=== PATIENT | female | born 1960 | race Caucasian/White ===

== ENCOUNTER 2018-02-03 23:46 | Inpatient (IN) | payer MEDICARE, OTHER ==
[2018-02-03] MEDS: FUROSEMIDE 100 MG INJ IV (23:48)
[2018-02-04 00:05] LABS: WHITE BLOOD COUNT 13.1 10^3/ul (4.8-10.8)
[2018-02-04 00:05] LABS: ADD MAN DIFF? NO; BASOPHILS % 0.3 % (0.0-2.0); EOSINOPHILS # 0.2 10^3/ul (0.0-0.5); EOSINOPHILS % 1.2 % (0.0-7.0); HEMATOCRIT 45.9 % (37.0-47.0); HEMOGLOBIN 14.4 g/dl (12.0-16.0); LYMPHOCYTES # 1.6 10^3/ul (0.8-2.9); LYMPHOCYTES % 11.8 % (15.0-51.0); MEAN CORPUSCULAR HEMOGLOBIN 27.5 pg (29.0-33.0); MEAN CORPUSCULAR HGB CONC 31.4 g/dl (32.0-37.0); MEAN CORPUSCULAR VOLUME 87.8 fl (82.0-101.0); MEAN PLATELET VOLUME 9.8 fl (7.4-10.4); MONOCYTE # 0.7 10^3/ul (0.3-0.9); MONOCYTES % 5.3 % (0.0-11.0); NEUTROPHIL # 10.6 10^3/ul (1.6-7.5); NEUTROPHILS % 80.8 % (39.0-77.0); PLATELET COUNT 260 10^3/UL (140-415); RED BLOOD COUNT 5.23 10^6/ul (4.20-5.40); RED CELL DISTRIBUTION WIDTH 14.9 % (11.5-14.5)
[2018-02-04] MEDS: NITROGLYCERIN 2% 1 GM OINT PKT TD ×3 (00:14→21:05)
[2018-02-04] MEDS: NITROGLYCERIN 50 MG/D5W (PMX) 250 ML IV (00:15)
[2018-02-04 00:22] LABS: ALBUMIN/GLOBULIN RATIO 1.65; ANION GAP 14 (5-13); BILIRUBIN,TOTAL 0.8 mg/dl (0.2-1.3); Estimated GFR > 60 mL/min (>60)
[2018-02-04 00:28] LABS: ALANINE AMINOTRANSFERASE 23 IU/L (13-69); ALBUMIN 4.8 g/dl (3.3-4.9); ALKALINE PHOSPHATASE 82 IU/L (42-121); ASPARTATE AMINO TRANSFERASE 21 IU/L (15-46); BILIRUBIN,INDIRECT 0.8 mg/dl (0-1.1); BLOOD UREA NITROGEN 8 mg/dl (7-20); CALCIUM 10.3 mg/dl (8.4-10.2); CARBON DIOXIDE 30 mmol/L (21-31); CHLORIDE 92 mmol/L (97-110); CREATININE 0.17 mg/dl (0.44-1.00); GLUCOSE 367 mg/dl (70-220); POTASSIUM 4.4 mmol/L (3.5-5.1); SODIUM 136 mmol/L (135-144); TOTAL PROTEIN 7.7 g/dl (6.1-8.1)
[2018-02-04 00:29] LABS: INR 0.92; PROTIME 12.4 Sec (11.9-14.9)
[2018-02-04 00:30] LABS: PARTIAL THROMBOPLASTIN TIME 26.7 Sec (23.0-35.0)
[2018-02-04 00:42] LABS: B-TYPE NATRIURETIC PEPTIDE 94 PG/ML (0-125); TROPONIN-I < 0.012 ng/ml (0.000-0.120)
[2018-02-04 00:44] LABS: Allen Test ACCEPTAB; Arterial Base Excess 0 mmol/L (-3.0-3); Arterial Blood Gas Oxygen Sat 99.4 mmHG (95.0-98.0); Arterial COHb 1.4 % (0.0-3.0); Arterial Fraction of Oxyhgb 97.8 % (93.0-99.0); Arterial HCO3 27.6 mmol/L (22.0-26.0); Arterial MetHb 0.2 % (0.0-1.5); Arterial pCO2 57.3 mmhg (35-45); Blood Gas IEPAP 15/5; MODE MASK - BIPAP; Site Right Radial
[2018-02-04] MEDS ORDERED: NACL 0.9% 3 ML SYG IV (01:00)
[2018-02-04] MEDS ORDERED: DOCUSATE SODIUM 100 MG CAP PO (01:00)
[2018-02-04] MEDS ORDERED: ONDANSETRON 4 MG INJ IV (01:00)
[2018-02-04] MEDS ORDERED: BISACODYL (EC) 5 MG TAB PO (01:00)
[2018-02-04] MEDS ORDERED: FUROSEMIDE 40 MG INJ (01:40)
[2018-02-04] MEDS ORDERED: LABETALOL HCL 20MG INJ IV (02:00)
[2018-02-04] MEDS: ACCU-CHEK XX (02:00)
[2018-02-04] MEDS ORDERED: ACETYLCYSTEINE 20% 4 ML VIAL (05:19)
[2018-02-04] MEDS: ACETYLCYSTEINE 20% 4 ML VIAL NEB ×3 (05:27→19:30)
[2018-02-04] MEDS: LEVALBUTEROL (NEB) 1.25 MG/0.5 ML AMP HHN ×2 (05:29→19:30)
[2018-02-04] MEDS ORDERED: NITROGLYCERIN 0.3 MG/HR PATCH TRANSDERM (05:30)
[2018-02-04 05:37] LABS: ADD MAN DIFF? NO
[2018-02-04] MEDS: FUROSEMIDE 40 MG INJ IV ×3 (05:39→21:03)
[2018-02-04] MEDS: LISINOPRIL 20 MG TAB PO (05:40)
[2018-02-04 05:43] LABS: WHITE BLOOD COUNT 10.7 10^3/ul (4.8-10.8)
[2018-02-04 05:43] LABS: ABNORMAL IP MESSAGE 1; BASOPHILS % 0.4 % (0.0-2.0); EOSINOPHILS % 0.4 % (0.0-7.0); HEMATOCRIT 42.2 % (37.0-47.0); HEMOGLOBIN 13.2 g/dl (12.0-16.0); LYMPHOCYTES # 0.5 10^3/ul (0.8-2.9); LYMPHOCYTES % 4.7 % (15.0-51.0); MEAN CORPUSCULAR HEMOGLOBIN 27.7 pg (29.0-33.0); MEAN CORPUSCULAR HGB CONC 31.3 g/dl (32.0-37.0); MEAN CORPUSCULAR VOLUME 88.5 fl (82.0-101.0); MEAN PLATELET VOLUME 10.4 fl (7.4-10.4); MONOCYTE # 0.5 10^3/ul (0.3-0.9); MONOCYTES % 4.5 % (0.0-11.0); NEUTROPHIL # 9.6 10^3/ul (1.6-7.5); NEUTROPHILS % 89.4 % (39.0-77.0); PLATELET COUNT 241 10^3/UL (140-415); RED BLOOD COUNT 4.77 10^6/ul (4.20-5.40); RED CELL DISTRIBUTION WIDTH 14.9 % (11.5-14.5)
[2018-02-04 05:44] LABS: LACTIC ACID 1.2 mmol/L (0.5-2.0)
[2018-02-04 05:54] LABS: D-DIMER 584.54 ng/ml (<460)
[2018-02-04 05:54] LABS: ALANINE AMINOTRANSFERASE 19 IU/L (13-69); ALBUMIN 4.2 g/dl (3.3-4.9); ALBUMIN/GLOBULIN RATIO 1.55; ALKALINE PHOSPHATASE 76 IU/L (42-121); ANION GAP 12 (5-13); ASPARTATE AMINO TRANSFERASE 15 IU/L (15-46); BILIRUBIN,INDIRECT 0.7 mg/dl (0-1.1); BILIRUBIN,TOTAL 0.7 mg/dl (0.2-1.3); BLOOD UREA NITROGEN 12 mg/dl (7-20); CALCIUM 9.7 mg/dl (8.4-10.2); CARBON DIOXIDE 32 mmol/L (21-31); CHLORIDE 93 mmol/L (97-110); CHOL/HDL RATIO 3.3 RATIO; CHOLESTEROL 147 mg/dl (100-200); CREATININE 0.26 mg/dl (0.44-1.00); Estimated GFR > 60 mL/min (>60); GLUCOSE 388 mg/dl (70-220); HDL CHOLESTEROL 44 mg/dl (37-92); LDL CHOLESTEROL,CALCULATED 79 mg/dl; MAGNESIUM 1.6 mg/dl (1.7-2.5); POTASSIUM 4.3 mmol/L (3.5-5.1); SODIUM 137 mmol/L (135-144); TOTAL PROTEIN 6.9 g/dl (6.1-8.1); TRIGLYCERIDES 122 mg/dl (0-149)
[2018-02-04 06:01] LABS: HEMOGLOBIN A1C 10.7 % (0-5.9)
[2018-02-04 06:11] LABS: POSITIVE DIFF @See below
[2018-02-04 06:24] LABS: THYROID STIMULATING HORMONE 0.666 MIU/L (0.465-4.680)
[2018-02-04 06:49] LABS: TROPONIN-I < 0.012 ng/ml (0.000-0.120)
[2018-02-04 07:01] LABS: CREATINE KINASE 70 IU/L (23-200)
[2018-02-04 07:13] LABS: ADD UMIC YES; UR ASCORBIC ACID 20 mg/dL (NEGATIVE); UR BILIRUBIN (Dip) NEGATIVE (NEGATIVE); UR BLOOD (Dip) 2+ mg/dL (NEGATIVE); UR CLARITY CLEAR (CLEAR); UR COLOR STRAW (YELLOW); UR GLUCOSE (Dip) 3+ mg/dL (NEGATIVE); UR KETONES (Dip) 1+ mg/dL (NEGATIVE); UR LEUKOCYTE ESTERASE (Dip) NEGATIVE Leu/ul (NEGATIVE); UR NITRITE (Dip) NEGATIVE (NEGATIVE); UR RBC 51 /HPF (0-5); UR SPECIFIC GRAVITY (Dip) 1.012 (1.003-1.030); UR TOTAL PROTEIN (Dip) NEGATIVE (NEGATIVE); UR UROBILINOGEN (Dip) NEGATIVE (NEGATIVE); UR WBC 4 /HPF (0-5)
[2018-02-04] MEDS: ENOXAPARIN 40 MG/0.4 ML SYG SC (07:18)
[2018-02-04] MEDS: INSULIN ASPART [NOVOLOG] 3 ML PEN SC ×6 (08:06→21:44)
[2018-02-04] MEDS: MAGNESIUM SULFATE 2 GM/50 ML 50 ML IVPB (12:12)
[2018-02-04 12:49] LABS: CREATINE KINASE 64 IU/L (23-200)
[2018-02-04 12:57] LABS: CK INDEX 0.7; CK-MB 0.42 ng/ml (0.0-2.4); TROPONIN-I < 0.012 ng/ml (0.000-0.120)
[2018-02-04] MEDS: IOHEXOL 100 ML (14:32)
[2018-02-04] MEDS: SOD CHLORIDE 0.9% 100 ML (14:32)
[2018-02-04] MEDS: ACETAMINOPHEN 325 MG TAB PO (17:44)
[2018-02-04] MEDS: INFLUENZA VIRUS VACCINE 0.5 ML (DISPENSING) IM* (17:55)
[2018-02-04] MEDS: ATORVASTATIN 20 MG TAB PO (21:04)
[2018-02-04] MEDS: INSULIN DETEMIR [LEVEMIR] (100 UNITS/ML) SYG SC (21:11)
[2018-02-05] MEDS: LEVALBUTEROL (NEB) 1.25 MG/0.5 ML AMP HHN ×2 (01:11→07:21)
[2018-02-05] MEDS: ACETYLCYSTEINE 20% 4 ML VIAL NEB ×3 (01:12→13:50)
[2018-02-05] MEDS: ACCU-CHEK XX (02:00)
[2018-02-05] MEDS: ACETAMINOPHEN 325 MG TAB PO (07:18)
[2018-02-05] MEDS: ENOXAPARIN 40 MG/0.4 ML SYG SC (07:27)
[2018-02-05] MEDS: HYDROCHLOROTHIAZIDE 12.5 MG CAP PO (08:36)
[2018-02-05] MEDS: LISINOPRIL 20 MG TAB PO (08:37)
[2018-02-05] MEDS: NITROGLYCERIN 2% 1 GM OINT PKT TD ×2 (08:38→20:55)
[2018-02-05] MEDS: FUROSEMIDE 40 MG INJ IV ×2 (08:38→20:58)
[2018-02-05] MEDS: INSULIN ASPART [NOVOLOG] 3 ML PEN SC ×6 (08:48→20:13)
[2018-02-05] MEDS ORDERED: GLUCAGON 1 MG INJ IM (09:00)
[2018-02-05] MEDS ORDERED: DEXTROSE 50% 50 ML SYRINGE IV ×2 (09:00)
[2018-02-05] MEDS ORDERED: GLUCOSE GEL 15 GRAM TUBE BUCCAL (09:00)
[2018-02-05] MEDS ORDERED: GLUCOSE GEL 15 GRAM TUBE PO ×2 (09:00)
[2018-02-05] MEDS: AZITHROMYCIN 250 MG TAB PO (12:31)
[2018-02-05] MEDS: AMOXICILLIN 500 MG CAP PO ×2 (14:40→23:02)
[2018-02-05] MEDS: METHYLPREDNISOLONE 40 MG INJ IV ×2 (15:30→20:58)
[2018-02-05] MEDS: ATORVASTATIN 20 MG TAB PO (20:58)
[2018-02-05] MEDS: INSULIN DETEMIR [LEVEMIR] (100 UNITS/ML) SYG SC (20:59)
[2018-02-06] MEDS: ACCU-CHEK XX (02:02)
[2018-02-06] MEDS: INSULIN ASPART [NOVOLOG] 3 ML PEN SC ×9 (02:18→21:45)
[2018-02-06] MEDS: AMOXICILLIN 500 MG CAP PO ×3 (05:25→20:38)
[2018-02-06] MEDS: ENOXAPARIN 40 MG/0.4 ML SYG SC (06:05)
[2018-02-06] MEDS: NITROGLYCERIN 2% 1 GM OINT PKT TD ×2 (09:00→20:27)
[2018-02-06] MEDS: FUROSEMIDE 40 MG INJ IV ×2 (09:00→20:27)
[2018-02-06] MEDS: AZITHROMYCIN 250 MG TAB PO (09:00)
[2018-02-06] MEDS: METHYLPREDNISOLONE 40 MG INJ IV ×2 (09:01→20:26)
[2018-02-06] MEDS: LISINOPRIL 20 MG TAB PO (09:01)
[2018-02-06] MEDS: HYDROCHLOROTHIAZIDE 12.5 MG CAP PO (09:01)
[2018-02-06] MEDS: INSULIN DETEMIR [LEVEMIR] (100 UNITS/ML) SYG SC ×2 (11:14→20:30)
[2018-02-06 11:56] LABS: BLOOD UREA NITROGEN 20 mg/dl (7-20); CALCIUM 10.2 mg/dl (8.4-10.2); CHLORIDE 93 mmol/L (97-110); CREATININE 0.26 mg/dl (0.44-1.00); Estimated GFR > 60 mL/min (>60); GLUCOSE 293 mg/dl (70-220); POTASSIUM 4.3 mmol/L (3.5-5.1); SODIUM 142 mmol/L (135-144)
[2018-02-06 12:03] LABS: ANION GAP 10 (5-13)
[2018-02-06 12:06] LABS: CARBON DIOXIDE 39 mmol/L (21-31)
[2018-02-06] MEDS: ATORVASTATIN 20 MG TAB PO (20:27)
[2018-02-07] MEDS: INSULIN ASPART [NOVOLOG] 3 ML PEN SC ×8 (02:55→20:20)
[2018-02-07] MEDS: ACCU-CHEK XX (02:56)
[2018-02-07] MEDS: AMOXICILLIN 500 MG CAP PO ×3 (05:59→22:14)
[2018-02-07] MEDS: ENOXAPARIN 40 MG/0.4 ML SYG SC (05:59)
[2018-02-07 07:29] LABS: ADD MAN DIFF? NO
[2018-02-07 07:38] LABS: BASOPHILS % 0.2 % (0.0-2.0); HEMATOCRIT 41.8 % (37.0-47.0); LYMPHOCYTES # 0.8 10^3/ul (0.8-2.9); LYMPHOCYTES % 12.7 % (15.0-51.0); MEAN CORPUSCULAR HEMOGLOBIN 27.5 pg (29.0-33.0); MEAN CORPUSCULAR HGB CONC 31.1 g/dl (32.0-37.0); MEAN CORPUSCULAR VOLUME 88.6 fl (82.0-101.0); MEAN PLATELET VOLUME 9.9 fl (7.4-10.4); MONOCYTE # 0.3 10^3/ul (0.3-0.9); MONOCYTES % 5.4 % (0.0-11.0); NEUTROPHIL # 5.1 10^3/ul (1.6-7.5); NEUTROPHILS % 81.2 % (39.0-77.0); PLATELET COUNT 268 10^3/UL (140-415); RED BLOOD COUNT 4.72 10^6/ul (4.20-5.40); RED CELL DISTRIBUTION WIDTH 14.8 % (11.5-14.5)
[2018-02-07 07:38] LABS: WHITE BLOOD COUNT 6.3 10^3/ul (4.8-10.8)
[2018-02-07 08:14] LABS: BLOOD UREA NITROGEN 25 mg/dl (7-20); CALCIUM 9.9 mg/dl (8.4-10.2); CHLORIDE 91 mmol/L (97-110); CREATININE 0.26 mg/dl (0.44-1.00); Estimated GFR > 60 mL/min (>60); GLUCOSE 369 mg/dl (70-220); MAGNESIUM 1.9 mg/dl (1.7-2.5); PHOSPHORUS 4.6 mg/dl (2.5-4.9); POTASSIUM 4.3 mmol/L (3.5-5.1); SODIUM 139 mmol/L (135-144)
[2018-02-07] MEDS: NITROGLYCERIN 2% 1 GM OINT PKT TD ×2 (08:40→20:21)
[2018-02-07] MEDS: LISINOPRIL 20 MG TAB PO (08:40)
[2018-02-07] MEDS: FUROSEMIDE 40 MG INJ IV ×2 (08:40→20:19)
[2018-02-07] MEDS: METHYLPREDNISOLONE 40 MG INJ IV ×2 (08:40→20:19)
[2018-02-07] MEDS: AZITHROMYCIN 250 MG TAB PO (08:40)
[2018-02-07] MEDS: HYDROCHLOROTHIAZIDE 12.5 MG CAP PO (08:41)
[2018-02-07 08:45] LABS: ANION GAP 11 (5-13)
[2018-02-07 08:46] LABS: CARBON DIOXIDE 37 mmol/L (21-31)
[2018-02-07] MEDS: INSULIN DETEMIR [LEVEMIR] (100 UNITS/ML) SYG SC ×2 (11:22→20:52)
[2018-02-07] MEDS: ATORVASTATIN 20 MG TAB PO (20:19)
[2018-02-08] MEDS: ACCU-CHEK XX (02:00)
[2018-02-08] MEDS: AMOXICILLIN 500 MG CAP PO ×3 (06:17→21:09)
[2018-02-08] MEDS: ENOXAPARIN 40 MG/0.4 ML SYG SC (06:21)
[2018-02-08] MEDS: INSULIN ASPART [NOVOLOG] 3 ML PEN SC ×7 (07:47→21:00)
[2018-02-08] MEDS: METHYLPREDNISOLONE 40 MG INJ IV ×2 (08:35→21:09)
[2018-02-08] MEDS: NITROGLYCERIN 2% 1 GM OINT PKT TD ×2 (08:35→21:11)
[2018-02-08] MEDS: LISINOPRIL 20 MG TAB PO (08:35)
[2018-02-08] MEDS: HYDROCHLOROTHIAZIDE 12.5 MG CAP PO (08:35)
[2018-02-08] MEDS: AZITHROMYCIN 250 MG TAB PO (08:36)
[2018-02-08] MEDS: FUROSEMIDE 40 MG INJ IV ×2 (08:36→21:11)
[2018-02-08] MEDS: INSULIN DETEMIR [LEVEMIR] (100 UNITS/ML) SYG SC ×2 (08:39→21:56)
[2018-02-08 08:45] LABS: BLOOD UREA NITROGEN 30 mg/dl (7-20); CALCIUM 9.8 mg/dl (8.4-10.2); CHLORIDE 91 mmol/L (97-110); CREATININE 0.34 mg/dl (0.44-1.00); Estimated GFR > 60 mL/min (>60); GLUCOSE 281 mg/dl (70-220); POTASSIUM 4.7 mmol/L (3.5-5.1); SODIUM 140 mmol/L (135-144)
[2018-02-08 08:57] LABS: ANION GAP 6 (5-13); CARBON DIOXIDE 43 mmol/L (21-31)
[2018-02-08] MEDS: ATORVASTATIN 20 MG TAB PO (21:09)
[2018-02-09] MEDS: ACCU-CHEK XX (02:00)
[2018-02-09] MEDS: AMOXICILLIN 500 MG CAP PO ×3 (06:01→21:24)
[2018-02-09] MEDS: ENOXAPARIN 40 MG/0.4 ML SYG SC (06:35)
[2018-02-09 07:02] LABS: BLOOD UREA NITROGEN 26 mg/dl (7-20); CALCIUM 9.3 mg/dl (8.4-10.2); CHLORIDE 89 mmol/L (97-110); CREATININE 0.28 mg/dl (0.44-1.00); Estimated GFR > 60 mL/min (>60); GLUCOSE 307 mg/dl (70-220); POTASSIUM 4.2 mmol/L (3.5-5.1); SODIUM 139 mmol/L (135-144)
[2018-02-09 07:29] LABS: ANION GAP 8 (5-13); CARBON DIOXIDE 42 mmol/L (21-31)
[2018-02-09] MEDS: INSULIN ASPART [NOVOLOG] 3 ML PEN SC ×7 (08:16→20:18)
[2018-02-09] MEDS: LISINOPRIL 20 MG TAB PO (08:37)
[2018-02-09] MEDS: HYDROCHLOROTHIAZIDE 12.5 MG CAP PO (08:37)
[2018-02-09] MEDS: NITROGLYCERIN 2% 1 GM OINT PKT TD ×2 (08:38→20:07)
[2018-02-09] MEDS: AZITHROMYCIN 250 MG TAB PO (08:38)
[2018-02-09] MEDS: METHYLPREDNISOLONE 40 MG INJ IV (08:38)
[2018-02-09] MEDS: FUROSEMIDE 40 MG INJ IV ×3 (08:38→17:53)
[2018-02-09] MEDS: INSULIN DETEMIR [LEVEMIR] (100 UNITS/ML) SYG SC ×2 (08:50→20:18)
[2018-02-09] MEDS ORDERED: FUROSEMIDE 40 MG INJ IV (09:00)
[2018-02-09 12:53] LABS: AADO2 Arterial 34.6 mmHg (7.0-24.0); Allen Test ACCEPTAB; Arterial Base Excess 11.4 mmol/L (-3.0-3); Arterial Blood Gas Oxygen Sat 84.6 mmHG (95.0-98.0); Arterial Fraction of Oxyhgb 83.8 % (93.0-99.0); Arterial MetHb 0 % (0.0-1.5); Arterial pCO2 56.6 mmhg (35-45); MODE ROOM AIR; Site Right Radial
[2018-02-09] MEDS: ATORVASTATIN 20 MG TAB PO (20:06)
[2018-02-10] MEDS: ACCU-CHEK XX (01:16)
[2018-02-10] MEDS: FUROSEMIDE 40 MG INJ IV ×2 (06:00→17:29)
[2018-02-10] MEDS: AMOXICILLIN 500 MG CAP PO ×3 (06:02→22:00)
[2018-02-10] MEDS: ENOXAPARIN 40 MG/0.4 ML SYG SC (06:09)
[2018-02-10] MEDS: AZITHROMYCIN 250 MG TAB PO (08:18)
[2018-02-10] MEDS: LISINOPRIL 20 MG TAB PO (08:19)
[2018-02-10] MEDS: predniSONE 20 MG TAB PO (08:19)
[2018-02-10] MEDS: HYDROCHLOROTHIAZIDE 12.5 MG CAP PO (08:19)
[2018-02-10] MEDS: NITROGLYCERIN 2% 1 GM OINT PKT TD ×2 (08:20→20:22)
[2018-02-10] MEDS: INSULIN ASPART [NOVOLOG] 3 ML PEN SC ×7 (08:30→20:35)
[2018-02-10] MEDS: INSULIN DETEMIR [LEVEMIR] (100 UNITS/ML) SYG SC ×2 (08:30→20:36)
[2018-02-10] MEDS: ACETAMINOPHEN 325 MG TAB PO (08:59)
[2018-02-10 10:00] LABS: BLOOD UREA NITROGEN 22 mg/dl (7-20); CALCIUM 9.5 mg/dl (8.4-10.2); CHLORIDE 87 mmol/L (97-110); CREATININE 0.32 mg/dl (0.44-1.00); Estimated GFR > 60 mL/min (>60); GLUCOSE 193 mg/dl (70-220); POTASSIUM 3.1 mmol/L (3.5-5.1); SODIUM 139 mmol/L (135-144)
[2018-02-10 11:01] LABS: ANION GAP 10 (5-13); CARBON DIOXIDE 42 mmol/L (21-31)
[2018-02-10] MEDS: POTASSIUM CHLORIDE (SR) 20 MEQ TAB PO (13:34)
[2018-02-10] MEDS: ATORVASTATIN 20 MG TAB PO (20:21)
[2018-02-11] MEDS: ACCU-CHEK XX (01:58)
[2018-02-11] MEDS: FUROSEMIDE 40 MG INJ IV ×2 (05:35→17:18)
[2018-02-11] MEDS: AMOXICILLIN 500 MG CAP PO ×2 (05:36→14:20)
[2018-02-11] MEDS: ENOXAPARIN 40 MG/0.4 ML SYG SC (06:28)
[2018-02-11] MEDS: HYDROCHLOROTHIAZIDE 12.5 MG CAP PO (08:41)
[2018-02-11] MEDS: AZITHROMYCIN 250 MG TAB PO (08:42)
[2018-02-11] MEDS: LISINOPRIL 20 MG TAB PO (08:42)
[2018-02-11] MEDS: NITROGLYCERIN 2% 1 GM OINT PKT TD (08:43)
[2018-02-11] MEDS: INSULIN DETEMIR [LEVEMIR] (100 UNITS/ML) SYG SC (08:52)
[2018-02-11] MEDS: INSULIN ASPART [NOVOLOG] 3 ML PEN SC ×4 (08:53→11:50)
[2018-02-11] MEDS: POTASSIUM CHLORIDE (SR) 20 MEQ TAB PO (14:20)
== END 2018-02-11 18:25 | disposition home or self-care (01) | DRG 291 ==
LOC: E/R 23:46 → TEL 02-07 19:26
DX: I11.0 Hypertensive heart disease with heart failure (principal); J96.01 Acute respiratory failure with hypoxia; J18.9 Pneumonia, unspecified organism; Z68.42 Body mass index [BMI] 45.0-49.9, adult; I16.1 Hypertensive emergency; J81.1 Chronic pulmonary edema; E66.2 Morbid (severe) obesity with alveolar hypoventilation; Z71.3 Dietary counseling and surveillance; J40 Bronchitis, not specified as acute or chronic; E11.65 Type 2 diabetes mellitus with hyperglycemia; G47.33 Obstructive sleep apnea (adult) (pediatric); E78.5 Hyperlipidemia, unspecified; I42.9 Cardiomyopathy, unspecified; I50.33 Acute on chronic diastolic (congestive) heart failure
CPT/HCPCS: 36415; 36600; 71045; 71275; 80048; 80053; 80061; 81001; 82550; 82553; 82803; 82962; 83036; 83605; 83735; 83880; 84100; 84443; 84484; 85025; 85378; 85610; 85730; 87400; 90686; 93005; 93306; 93970; 94640; 94660; 96374; 96375; 99291-25